=== PATIENT | female | born 1970 | race Caucasian/White ===

== ENCOUNTER 2018-10-25 01:16 | Inpatient (IN) | payer OTHER ==
[2018-10-25] MEDS ORDERED: NS 1,000 ML IV ONE (01:30)
--- NOTE | 2018-10-25 01:30 | EDPHY ---
Addendum entered and electronically signed by Saqib Bingham MD 10/25/18 15:10: Patient re-evaluated at 3:10 p.m.. She still really sleepy after 13 hr evaluation. Discussed with Dr. Gomez at this time, who will admit for hospital observation and inpatient psychiatric evaluation. Clinical impression: Overdose, acute encephalopathy The condition on admission: Fair Disposition: Inpatient on M1 hold Original Note: H & P Stated Complaint: OD Source: Patient, Family Exam Limitations: Intoxication - Personal History Tetanus Vaccine Date: last 10 years - Medical/Surgical History Hx Asthma: No Hx Chronic Respiratory Disease: No Hx Diabetes: No Hx Cardiac Disease: No Hx Renal Disease: No Hx Cirrhosis: No Hx Alcoholism: Yes Hx HIV/AIDS: No Hx Splenectomy or Spleen Trauma: No Other PMH: in ICU in [place] with aspiration pneumonia due to alcohol abuse , DEPRESSION, PTSD,ANIETY, MOOD DISORDER, R FOOT FX W/ HARDWARE. SUICIDE ATTEMPTS - Social History Smoking Status: Never smoked Time Seen by Provider: 10/25/18 01:19 HPI/ROS: HPI The patient presents with overdose of her own medications tonight in between 9: 00 p.m. And 11:30 p.m.. These include Topamax (2500mg), Ambien (30mg), Doxepin (750mg). She has a history of bipolar disorder and received ECT therapy. She has history of multiple drug overdoses including a Topamax overdose which required several day ICU stay with intubation. Her keeps her medication in a safe, however did not put Ambien and Topamax in the safe because prescriptions were just filled today. She denies any complaints currently. REVIEW OF SYSTEMS 10 systems were reviewed and negative with the exception of the elements mentioned in the history of present illness. PMHx: Bipolar disorder, history of SI Soc Hx: Here with her PHYSICAL General Appearance: Sedate, response to loud voice Eyes: Pupils equal and round no pallor or injection ENT, Mouth: Mucous membranes moist Respiratory: There are no retractions, lungs are clear to auscultation Cardiovascular: Regular rate and rhythm Gastrointestinal: Abdomen is soft and non-tender, no masses, bowel sounds normal Neurological: Sedate, oriented to self and place, can state that it is 2019, moves all extremities Skin: Warm and dry, no rashes Musculoskeletal: Neck is supple non tender Extremities: symmetrical, full range of motion Psychiatric: There is no agitation (Kassidy Jean) Constitutional: Initial Vital Signs Temperature (C) 36.3 C 10/25/18 01:22 Heart Rate 104 H 10/25/18 01:22 Respiratory Rate 14 10/25/18 01:22 Blood Pressure 116/85 H 10/25/18 01:22 O2 Sat (%) 108 H 10/25/18 01:22 O2 Delivery Mode Room Air Allergies/Adverse Reactions: lamotrigine [From Lamictal] Allergy (Verified 10/25/18 01:24) Sulfa (Sulfonamide Antibiotics) Allergy (Verified 10/25/18 01:24) trazodone Allergy (Verified 10/25/18 01:24) Home Medications: Medication Instructions Recorded Ambien Cr 10 mg PO HS PRN 03/13/18 Disulfiram 500 mg PO DAILY 03/13/18 Doxepin HCl 30 mg PO HS 03/13/18 Klonopin 1 mg PO TID 03/13/18 Levothyroxine 75 mcg PO DAILY 03/13/18 [place] Carbonate Tab 300 mg (*) 600 mg PO BID 03/13/18 Pristiq 100 mg PO DAILY 03/13/18 Propranolol HCl 20 mg PO DAILY 03/13/18 Topamax 100MG (*) 100 mg PO HS 03/13/18 Cholecalciferol Vit D3 [Vitamin D3 2,000 units PO DAILY 03/18/18 2000 units tab (OTC)] Medical Decision Making - Diagnostics EKG Interpretation: EKG: Complete interpretation has been separately recorded in the [facility] archive. Summary impression: Normal sinus rhythm (Kassidy Jean) Differential Diagnosis: 48-year-old female with bipolar disorder presents brought in by her after drug overdose of her own medications including Ambien, topiramate, doxepin between 9:00 p.m. And 11:30 p.m. Tonight. This was done in an effort to hurt herself. She has history of drug overdose many times before. Here, she is quite sedate though able to maintain her airway. I have placed the patient on an M1 hold. I have given her IV fluids. I have checked basic labs including Tylenol and aspirin levels. We consulted with poison Control, case [id number]. They recommend supportive care with 6-8 hours of observation. 6:30 a.m.- Patient has been stable, sedate though with normal vital signs throughout my shift. Labs are unremarkable though we are still awaiting urine. The case will be signed out to Dr. Bingham at change of shift. The patient can be medically clear 6 hr into her ED stay and can be evaluated by mental health. I suspect she will need placement. (Kassidy Jean) Other Provider: Care assumed at 6:45 a.m. With plan for mental health evaluation. Patient with history of bipolar disorder who overdosed on medications. She is on a mental health hold. 1500: Signed out to Dr. Henao with mental health evaluation pending. ( Saqib Bingham) I took over care of this patient at 3:00 p.m.. The patient is on an M1 hold for suicidal ideation and overdose on her psychiatric medications. She is medically cleared at this time. She is awaiting behavioral health evaluation. 3:15 p.m., the patient remains sleepy secondary to her intoxication on psychiatric medications. Plan at this time will be to admit her to the hospitalist service for further observation and then behavioral health evaluation when appropriate. Patient was admitted to the hospitalist service by Dr. Saqib Bingham. Admitting hospitalist Dr. Jaclyn Gomez. (David Henao) - Data Points Laboratory Results: Laboratory Results 10/25/18 01:30 10/25/18 01:30 10/25/18 13:50 Urine Opiates Screen NEGATIVE (NEGATIVE) Urine Barbiturates NEGATIVE (NEGATIVE) Ur Phencyclidine Scrn NEGATIVE (NEGATIVE) Ur Amphetamine Screen NEGATIVE (NEGATIVE) U Benzodiazepines Scrn NEGATIVE (NEGATIVE) Urine Cocaine Screen NEGATIVE (NEGATIVE) U Marijuana (THC) Screen NEGATIVE (NEGATIVE) Medications Given: Discontinued Medications Sodium Chloride (Ns) 1,000 mls @ 0 mls/hr IV EDNOW ONE; Wide Open PRN Reason: Protocol Stop: 10/25/18 01:31 Last Admin: 10/25/18 01:47 Dose: 1,000 mls Departure - Departure Disposition: [facility] Clinical Impression: Attempted suicide Overdose Qualifiers: Encounter type: initial encounter Injury intent: intentional self-harm Qualified Code(s): T50.902A - Poisoning by unspecified drugs, medicaments and biological substances, intentional self-harm, initial encounter Bipolar disorder Qualifiers: Active/Remission status: currently active Current bipolar episode type: mixed Current episode severity: unspecified Qualified Code(s): F31.60 - Bipolar disorder, current episode mixed, unspecified Condition: Fair Referrals: Patient,NotPresent [Unknown] - As per Instructions
[2018-10-25 01:43] LABS: PLATELET COUNT 167 10^3/uL (150-400)
[2018-10-25] MEDS ORDERED: ONDANSETRON DISINTEGRATING 4 MG TAB PO PRN (15:21)
[2018-10-25] MEDS ORDERED: ONDANSETRON 4 MG/2 ML VIAL IVP PRN (15:21)
[2018-10-25] MEDS ORDERED: ACETAMINOPHEN 325 MG TAB PO PRN (15:21)
[2018-10-25] MEDS ORDERED: D5W NS 1,000 ML IV SCH (15:30)
--- NOTE | 2018-10-25 15:53 | ASMTLCPROG ---
Notes Note: Notes: Pt has been moved from the ED to a medical floor. TLC clinician met with her for collateral. Mental health evaluation will need to wait for medical clearance. Date Signed: 10/25/2018 03:53 PM Electronically Signed By:Zaira Canales
--- NOTE | 2018-10-25 16:24 | GHP ---
[f rep st] HISTORY AND PHYSICAL DATE OF ADMISSION: 10/25/2018 CHIEF COMPLAINT: Intentional medication overdose. HISTORY OF PRESENT ILLNESS: A 48-year-old female with major depressive disorder, PTSD, undergoing EC T by Dr. Perez, last 10/14, brought in by her after a drug dose. She ingested medications last night between 9 and 11:30 p.m. The medications overdosed were Topamax (2500 mg), Ambien (30 mg) , and doxepin (750 mg). Her locks up her other medications. He did not with these because t hey were new prescriptions. She has had multiple suicide attempts. Over Super Bowl Friday, she had superficial left wrist cuts. She had been in the ED, very ataxic and somnolent still, thus being brought in for observation. REVIEW OF SYSTEMS: I completed a 10-point review of systems, negative except as noted in HPI. PAST MEDICAL HISTORY: Major depression disorder with several suicide attempts. Currently receiving ECT therapy, last 10/14/2018. Alcohol abuse, PTSD, seizure disorder after a drug ingestion, hypothyr oidism. PAST SURGICAL HISTORY: Foot surgery. SOCIAL HISTORY: She is . No kids. FAMILY HISTORY: Could not obtain as is somnolent. ALLERGIES: 1. Lamictal. 2. Sulfa. 3. Trazodone. HOME MEDICATIONS: 1. Ambien 10 mg at bedtime p.r.n. 2. Disulfiram 500 mg daily. 3. Doxepin 30 mg p.o. at bedtime. 4. Klonopin 1 mg t.i.d. 5. Levothyroxine 75 mcg daily. 6. [place] 600 mg b.i.d. 7. Pristiq 100 mg daily. 8. Propranolol 20 mg daily. 9. Topamax 100 mg at bedtime. 10. Vitamin D 2000 units daily. PHYSICAL EXAMINATION: VITAL SIGNS: Temperature 36.9, blood pressure is 113/69, heart rate 100, resp irations 18, 94% on room air. GENERAL: She is somnolent, opens eyes to voice, but falls asleep very quickly. HEENT: Pupils are small but reactive. Moist mucous membranes. CV: Tachy, regular rate a nd rhythm. LUNGS: Clear anteriorly. ABDOMEN: No grimace with palpation. : No Flynn. MUSCULOS KELETAL: Squeezes hands. NEURO: 2 through 12 intact. PSYCH: She is alert to the hospital, but not date or year. LABS: U-tox negative. Aspirin, salicylates, alcohol negative. WBC 9, hemoglobin 13, hematocrit 41, platelets 167. Sodium 136, potassium 4.6, chloride 113, carbon dioxide 17, BUN 12, creatinine 0.9, glucose 114. LFTs within normal. EKG is pending. ASSESSMENT AND PLAN: 1. Suicide intent: Medication overdose including Topamax, Ambien, doxepin. She still remains somno lent. We will monitor in the ICU overnight for arrhythmia. She is on an M1 hold and needs to be lainey luated by TLC in the morning when clears. 2. Acute metabolic encephalopathy: Secondary to medication overdose. 3. Metabolic acidosis: Secondary to Topamax. We will hydrate and repeat in the morning. 4. Major depression disorder: Again on M1 hold, is undergoing ECT. We will contact TLC in the morn ing. 5. Alcohol use: Blood alcohol level was negative. 6. Seizure disorder: Medications on hold. 7. Hypothyroidism: Hold medications until can swallow. 8. Diet: Nothing per mouth. Intravenous fluids. 9. Deep venous thrombosis prophylaxis: Lovenox. DISPOSITION: Observation admission in the ICU for telemetry, IV fluids, and psychiatric evaluation. /[id number]/MODL
--- NOTE | 2018-10-25 18:07 | PDMN ---
Medical Necessity Medical necessity: [facility] [place] [place] ingestion or OD- pt with intentional OD M1 hold for danger to self- pt with acute metabolic encephalopathy,metabolic acidosis,- 2/2 to med OD, TLC eval in am when pt clears-
[2018-10-26] MEDS ORDERED: ENOXAPARIN 40 MG/0.4 ML SYR SC SCH (09:00)
[2018-10-26 11:19] VITALS: BP 112/68
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
--- NOTE | 2018-10-26 13:09 | ASMTTCLDSP ---
TLC Discharge Disposition Disposition: Answers: Admit Disposition Notes: Notes: Admit 3N. Discharge Concerns/Recommendations: Notes: In consultation with [facility] ICU physician and on-call psychiatrist, Elder Perez MD, both concurred that pt appears to meet 27-65 criteria requiring psychiatric hospitalization as pt appears to be at risk of harm to self due to a mental illness condition. Pt was read the Patient Rights and Responsibilities Statement on 10/26/2018 at 1245 hrs, original placed on chart, and was given photocopy of Rights. Pt signed the Patient Rights. Pt was given the 3N prohibited belongings list while in the ICU. Was patient given the Answers: Yes Inpatient Behavioral Health Prohibited Belongings List while in the ED? For inpatient Elder Perez MD admission, the following psychiatrist agreed to accept patient for admission to Behavioral Health ([facility]): Type of Hold: Answers: M1/72-hour Hold Hold initiated by: Answers: ED Physician Date Signed: 10/26/2018 01:08 PM Electronically Signed By:Unruly Norwood
--- NOTE | 2018-10-26 14:14 | ASMTDCNOTE ---
Case Management Discharge Discharge Order Complete? Answers: Yes Patient to Obtain Answers: Other Notes: [facility] Medications Transportation Arranged Answers: [facility] Stretcher EMTALA Complete Answers: Yes Case Management Transport Answers: Yes Form Complete Faxed Final Orders Answers: Yes Agency/Facility Transfer Answers: Yes Report Printed & Faxed to Receiving Agency Discharge Comments Notes: Pt transfered to inpatient [facility]. Transportation was scheduled through [facility]. RN called report, pt agreeable with transfer. Date Signed: 10/26/2018 02:12 PM Electronically Signed By:CAN Coleman
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
--- NOTE | 2018-10-26 15:42 | PDDCSUM ---
Discharge Summary Discharge Summary: Date of Admission: 10/25/2018 Date of Discharge: 10/26/2018 Consults: Critical Care Medicine Followup: IP Behavioral Health/Psychiatry Hospital Course Problem List: 1. Intentional Overdose: - Medication overdose with Topamax, Ambien, and Doxepin - Patient was reported to be somnolent upon admission, AAOx3 this moroning - Admitted to ICU for monitoring overnight - Was on M1 Hold, medically cleared and plan to transfer to psych 2. Acute Metabolic Encephalopathy - 2/2 to medication overdose, resolved 3. Metabolic Acidosis - 2/2 to overdose - S/p IVF - Repeat BMP shows Bicarb 14 upon discharge, repeat labs as outpatient to ensure improving 4. Alcohol Abuse - ETOH level <10 on admission, no s/s of withdrawal 5. Seizure D/o - Continue home medications 6. Hypothyroidism - Continue home medications Time spent on discharge was >35 minutes with >50% of time spent on patient education and counseling.
== END 2018-10-26 15:09 | DRG 917 ==
LOC: UNDOADMIN 15:12 → F2N 16:58 → UNDODISIN 10-26 13:45 → F2N 10-26 14:15 → EEVIPCON 10-26 14:15 → UNDOADMIN 10-26 14:15 → BBEH 10-26 14:15 → UNDOADMIN 10-26 14:16 → EEVIPCON 10-26 14:16 → F2N 10-26 14:16 → BBEH 10-26 14:16 → UNDODISIN 10-26 15:09
PROVIDERS: ADMIT Internal Medicine; ATTEND Internal Medicine
DX: T42.6X2A Poisoning by other antiepileptic and sedative-hypnotic drugs, intentional self-harm, initial encounter (principal); T43.012A Poisoning by tricyclic antidepressants, intentional self-harm, initial encounter; F31.9 Bipolar disorder, unspecified; F43.10 Post-traumatic stress disorder, unspecified; G92 Toxic encephalopathy; E87.2 Acidosis; E03.9 Hypothyroidism, unspecified; G40.909 Epilepsy, unspecified, not intractable, without status epilepticus
CPT/HCPCS: 80305; G0480; J1650

== ENCOUNTER 2018-10-26 14:15 | Inpatient (IN) | payer OTHER ==
[2018-10-26] MEDS ORDERED: MAGNESIUM HYDROXIDE 30 ML UDCUP PO PRN (18:36)
[2018-10-26] MEDS ORDERED: MAG HYDROX/AL HYDROX/SIMETH 30 ML UDCUP PO PRN (18:36)
[2018-10-26] MEDS ORDERED: clonazePAM 1 MG TAB PO ONE (20:45)
--- NOTE | 2018-10-27 07:18 | ASMTBHMTP ---
Master Treatment Plan Master Treatment Plan Answers: Depressed Mood with for: Suicidal Ideation Date: 10/26/2018 Diagnosis on Admission: Bipolar I Disorder, current or most recent episode depressed, severe 296.53 (F31.4) Expected length of stay: 3-5 days Reason for admission: Notes: Clt is a 48 yoa female ECT patient. Patient's stated presenting problems: Notes: I attempted Suicide Patient's goals for treatment: Notes: to figure out a plan to not attempt suicide again. Patient's strengths: Notes: some.... Identify supports outside of hospital: Notes: /family Discharge criteria: Notes: Suicidal Ideation will resolve and patient will have a plan to safely manage recurrent suicidal ideation. Initial disposition plan/considerations: Notes: Return home to my family in [place].* Master Treatment Plan Required Signatures Psychiatrist signature: Answers: Psychiatrist: RN on-shift signature: Answers: RN: Patient signature: Answers: Patient: Date Signed: 10/27/2018 07:17 AM Electronically Signed By:Khari Verdin
--- NOTE | 2018-10-27 09:55 | PDMN ---
Medical Necessity Medical necessity: Pt meets inpt criteria per MD order and [facility] B-004, Bipolar Disorders, Adult: Inpatient Care, 4 days. 48 y/o w/suicidal ideation admitted w/ bipolar 1 disorder, current or most recent episode depressed, severe requiring inpt psychiatric hospitalization.
[2018-10-27] MEDS: ACETAMINOPHEN 325 MG TAB PO PRN (14:54)
[2018-10-27] MEDS ORDERED: clonazePAM 1 MG TAB PO ONE (18:00)
[2018-10-27] MEDS: MELATONIN 3 MG TAB PO SCH (21:00)
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
[2018-10-28] MEDS: ACETAMINOPHEN 325 MG TAB PO PRN (01:26)
[2018-10-28] MEDS ORDERED: CITRIC ACID/SODIUM CITRATE 30 ML UDCUP PO PRN (04:00)
[2018-10-28] MEDS ORDERED: ONDANSETRON DISINTEGRATING 4 MG TAB PO PRN ×2 (04:00→12:03)
[2018-10-28] MEDS ORDERED: CITRIC ACID/SODIUM CITRATE 30 ML UDCUP ONE (06:50)
[2018-10-28] MEDS ORDERED: ONDANSETRON DISINTEGRATING 4 MG TAB ONE (06:50)
[2018-10-28] MEDS: NS 1,000 ML IV PRN (07:06)
--- NOTE | 2018-10-28 07:33 | PDHPUP ---
History & Physical Update H&P update statement: This history and physical update is based on an assessment of the patient which was completed after admission or registration (within 24 hours), but prior to the surgery/procedure. H&P update: H&P reviewed & patient examined, no change in patient's condition since H&P completed
--- NOTE | 2018-10-28 07:38 | PDANEPAE ---
ANE Past Medical History - Cardiovascular History Hx Hypertension: No Hx Arrhythmias: No Hx Chest Pain: No Hx Coronary Artery / Peripheral Vascular Disease: No Hx Palpitations: No - Pulmonary History Hx Oxygen in Use at Home: No Hx Sleep Apnea: No - Neurologic History Hx Cerebrovascular Accident: No - Endocrine History Hx Diabetes: No - Renal History Hx Renal Disorders: No - Liver History Hx Hepatic Disorders: No - Cancer History Hx Cancer: No - Chronic Pain History Chronic Pain: No - Surgical History Prior Surgeries: Right foot ORIF 2016 ANE Review of Systems Review of Systems: ANE Patient History - Allergies Allergies/Adverse Reactions: trazodone Allergy (Intermediate, Verified 10/26/18 09:00) lamotrigine [From Lamictal] Allergy (Mild, Verified 10/26/18 09:00) Sulfa (Sulfonamide Antibiotics) Allergy (Verified 10/26/18 09:00) Rash - Home Medications Home medications: home medication list seen and reviewed Home Medications: Propranolol HCl 20 mg PO DAILY@03/13/18 [Last Taken Unknown] Cholecalciferol Vit D3 [Vitamin D3 2000 units tab (OTC)] 2,000 units PO DAILY@ 03/18/18 [Last Taken Unknown] Desvenlafaxine [Desvenlafaxine ER] 150 mg PO DAILY 10/25/18 [Last Taken Unknown] Disulfiram [Disulfiram] 500 mg PO DAILY 10/25/18 [Last Taken Unknown] Doxepin HCl [SINEquan 10 MG (*)] 30 mg PO HS 10/25/18 [Last Taken Unknown] Levothyroxine Sodium 75 mcg PO DAILY06 10/25/18 [Last Taken Unknown] [place] Carbonate [[place] Carbonate Cap 300 mg (*)] 600 mg PO BID 10/25/18 [ Last Taken Unknown] Topiramate [Topiramate] 100 mg PO HS 10/25/18 [Last Taken Unknown] Triamcinolone 0.025% [Triamcinolone 0.025% cream (*)] 1 dee TP TID PRN 10/25/18 [Last Taken Unknown] Zolpidem Tartrate [Zolpidem Tartrate] 10 mg PO HS PRN 10/25/18 [Last Taken Unknown] clonazePAM [Clonazepam] 1 mg PO TID@12,18,10/25/18 [Last Taken Unknown] Zolpidem Tartrate [Ambien 5MG (*)] 10 mg PO HS 10/26/18 [Last Taken Unknown] - NPO status NPO Status: no food or drink >8 hours - Anes Hx Anes Hx: no prior problems - Smoking Hx Smoking Status: Never smoked - Family Anes Hx Family Hx Anesthesia Complications: NA ANE Labs/Vital Signs - Vital Signs Blood Pressure: 121/60 Heart Rate: 75 Respiratory Rate: 16 O2 Sat (%): 99 Height: 154.94 cm Weight: 72.575 kg ANE Physical Exam - Airway Neck exam: FROM Mallampati Score: Class 1 Mouth exam: normal dental/mouth exam - Pulmonary Pulmonary: no respiratory distress, no rales or rhonchi, clear to auscultation - Cardiovascular Cardiovascular: regular rate and rhythym, no murmur, rub, or gallop - ASA Status ASA Status: II ANE Anesthesia Plan Anesthesia Plan: GA with mask
--- NOTE | 2018-10-28 07:52 | PDECTPN ---
ECT Progress Note Patient Problems: Problems Problem Status Onset Code Attempted suicide Acute T14.91XA Bipolar disorder Acute F31.9 Major depressive disorder, recurrent severe without psychotic features Acute F33.2 Overdose Acute T50.901A Date: 10/28/18 ECT provider: Flaco Perez Anesthesia: Stew Leigh Stimulus dose (%): 100 Pulse width: 0.3 ECT EMG (sec): 28 ECT EEG (sec): 54 ECT treatment type: unilateral QIDS-SR Total Score: 23 QIDS-SR Question #12 Score: 0 MMSE Total Score (Max = 21): 18 Next ECT date: 10/30/18 Next ECT time: 07:00 O/P psychiatrist follow up: direct communication Home medications: Medication Instructions Recorded Propranolol HCl 20 mg PO DAILY@03/13/18 Cholecalciferol Vit D3 [Vitamin D3 2,000 units PO DAILY@03/18/18 2000 units tab (OTC)] Desvenlafaxine [Desvenlafaxine ER] 150 mg PO DAILY 10/25/18 Disulfiram [Disulfiram] 500 mg PO DAILY 10/25/18 Doxepin HCl [SINEquan 10 MG (*)] 30 mg PO HS 10/25/18 Levothyroxine Sodium 75 mcg PO DAILY06 10/25/18 [place] Carbonate [[place] 600 mg PO BID 10/25/18 Carbonate Cap 300 mg (*)] Topiramate [Topiramate] 100 mg PO HS 10/25/18 Triamcinolone 0.025% 1 dee TP TID PRN 10/25/18 [Triamcinolone 0.025% cream (*)] Zolpidem Tartrate [Zolpidem 10 mg PO HS PRN 10/25/18 Tartrate] clonazePAM [Clonazepam] 1 mg PO TID@12,18,10/25/18 Zolpidem Tartrate [Ambien 5MG (*)] 10 mg PO HS 10/26/18 Medication review: completed Current treatment plan: acute phase Treatment plan frequency: 3 times per week ECT narrative: Pt seen for acute course treatment. She is now inpatient after intentional OD of multiple prescription meds. She states she has been "gradually declining for months." Denies specific precipitant, though states she was triggered when her put her new pill bottles on the table instead of immediately locking them up. She states, "I just had the sudden urge to and took a whole bottle of doxepin, topiramate and zolpidem." Discussed the opportunity to make some med changes inc: working to be off of benzo's and zolpidem. Calm, coop. Affect is restricted, stable, approp. Mood is "not too good." TP is linear, goal-directed. TC reveals no psychosis. Denies current SI.
--- NOTE | 2018-10-28 08:19 | POSTANESTH ---
Post Anesthetic Evaluation Cardiovascular Status: Other, See Comment (tachycardic 120s; will observe for now) Respiratory Status: Normal, Stable, Similar to Pre-op Cond. Level of Consciousness/Mental Status: Unconscious Complications Possibly Related to Anesthesia: None Noted
[2018-10-28] MEDS ORDERED: HYDROCODONE/APAP 5/325 TAB ONE (08:39)
[2018-10-28] MEDS: HYDROCODONE/APAP 5/325 TAB PO PRN ×2 (08:50→12:25)
[2018-10-28] MEDS ORDERED: DESVENLAFAXINE 100 MG PO SCH (09:00)
[2018-10-28] MEDS ORDERED: TRIAMCINOLONE 0.025% 15 GM CRTUBE TP PRN (16:43)
[2018-10-28] MEDS: PROPRANOLOL HCL 20 MG TAB PO SCH (19:56)
[2018-10-28] MEDS: DOXEPIN HCL 10 MG CAP PO SCH (19:57)
[2018-10-28] MEDS: LITHIUM CARBONATE 300 MG CAP PO SCH (19:57)
[2018-10-28] MEDS: TOPIRAMATE 100 MG TAB PO SCH (19:57)
[2018-10-28] MEDS: ZOLPIDEM TARTRATE 5 MG TAB PO PRN (20:02)
[2018-10-28] MEDS: MELATONIN 3 MG TAB PO SCH (20:03)
[2018-10-29] MEDS: MELATONIN 3 MG TAB PO SCH (00:27)
[2018-10-29] MEDS: LEVOTHYROXINE 75 MCG TAB PO SCH (05:55)
--- NOTE | 2018-10-29 07:59 | PDANEPAE ---
ANE History of Present Illness here for port for vascular access ANE Past Medical History - Cardiovascular History Hx Hypertension: No Hx Arrhythmias: No Hx Chest Pain: No Hx Coronary Artery / Peripheral Vascular Disease: No Hx Palpitations: No - Pulmonary History Hx Oxygen in Use at Home: No Hx Sleep Apnea: No - Neurologic History Hx Cerebrovascular Accident: No - Endocrine History Hx Diabetes: No - Renal History Hx Renal Disorders: No - Liver History Hx Hepatic Disorders: No - Neurological & Psychiatric Hx Hx Neurological and Psychiatric Disorders: Yes Neurological / Psychiatric History Comment: Confusion on exact diagnoses and dated back to psych care in [place] she has been labeled with BiPolar, MDD, PTSD and generalized mood disorder. Her depressive disorderhas been predominant and she has had several suicide attempts with pills and medication overdoses. She received ECT currently and is not suicidal today - Cancer History Hx Cancer: No - Chronic Pain History Chronic Pain: No - Surgical History Prior Surgeries: Right foot ORIF 2016 ANE Review of Systems Review of Systems: ANE Patient History - Allergies Allergies/Adverse Reactions: trazodone Allergy (Intermediate, Verified 10/26/18 09:00) lamotrigine [From Lamictal] Allergy (Mild, Verified 10/26/18 09:00) Sulfa (Sulfonamide Antibiotics) Allergy (Verified 10/26/18 09:00) Rash - Home Medications Home Medications: Propranolol HCl [Inderal 20mg (*)] 20 mg PO HS 03/13/18 [Last Taken Unknown] Cholecalciferol Vit D3 [Vitamin D3 2000 units tab (OTC)] 2,000 units PO DAILY@ 12 03/18/18 [Last Taken Unknown] Desvenlafaxine [Desvenlafaxine ER] 100 mg PO DAILY 10/25/18 [Last Taken Unknown] Disulfiram [Disulfiram] 500 mg PO DAILY 10/25/18 [Last Taken Unknown] Doxepin HCl [SINEquan 10 MG (*)] 30 mg PO HS 10/25/18 [Last Taken Unknown] Levothyroxine Sodium 75 mcg PO DAILY06 10/25/18 [Last Taken Unknown] [place] Carbonate [[place] Carbonate Cap 300 mg (*)] 600 mg PO BID 10/25/18 [ Last Taken Unknown] Topiramate [Topiramate] 100 mg PO HS 10/25/18 [Last Taken Unknown] Triamcinolone 0.025% [Triamcinolone 0.025% cream (*)] 1 dee TP TID PRN 10/25/18 [Last Taken Unknown] Zolpidem Tartrate [Zolpidem Tartrate] 10 mg PO HS PRN 10/25/18 [Last Taken Unknown] clonazePAM [Clonazepam] 1 mg PO TID@12,18,21 10/25/18 [Last Taken Unknown] Desvenlafaxine [Desvenlafaxine ER] 50 mg PO DAILY 10/28/18 [Last Taken Unknown] - Smoking Hx Smoking Status: Never smoked - Family Anes Hx Family Hx Anesthesia Complications: NA ANE Labs/Vital Signs - Vital Signs Blood Pressure: 140/75 Heart Rate: 84 Respiratory Rate: 16 O2 Sat (%): 6 Height: 154.94 cm Weight: 72.575 kg ANE Physical Exam - Airway Neck exam: FROM Mallampati Score: Class 2 Mouth exam: normal dental/mouth exam - Pulmonary Pulmonary: no respiratory distress, no rales or rhonchi - Cardiovascular Cardiovascular: regular rate and rhythym, no murmur, rub, or gallop - ASA Status ASA Status: III ANE Anesthesia Plan Anesthesia Plan: GA with mask Total IV Anesthesia: Yes
[2018-10-29] MEDS ORDERED: ceFAZolin 2 GM/DEXTROSE 100 ML IV ONE ×2 (08:00)
--- NOTE | 2018-10-29 08:11 | PDGENHP ---
History & Physical Chief Complaint: Depression History of Present Illness: This is a 48y/o F with a recent history of suicide attempt by overdose. She spent several days in ICU with close monitoring and was subsequently transferred to inpatient behavioral health. She started ECT therapy yesterday and has plans to continue therapy. She is a hard IV stick. We have been asked to place a port for ongoing therapy. Risks and options have been fully discussed. Pt wishes to proceed. Pertinent Past, Social, Family History: Past medical history: depression, multiple suicide attempts, seizures. Past surgical history: Right foot surgery. Medications: please see MAR. Social history: hx of alcohol abuse, nonsmoker. , no kids. Allergies: trazadone, lamictal, sulfa Relevant Physical Exam: General: well appearing, no acute distress. HEENT: normocephalic, atraumatic, no gross hearing deficits, mmm. Cardiac: RRR. Chest : CTAB. Abdomen: soft, nontender, nondistended. Neurologic: alert and oriented. Psychiatric: depressed mood. Musculoskeletal: MAEx4 Cardiorespiratory Assessment: Cardiac: RRR. Chest: CTAB
[2018-10-29] MEDS ORDERED: MIDAZOLAM 2 MG/2 ML VIAL IVP ONE (08:13)
[2018-10-29] MEDS ORDERED: oxyCODONE IR 5 MG TAB PO PRN (10:12)
[2018-10-29] MEDS ORDERED: LIDOCAINE/PRILOCAINE 1 EACH CRTUBE TP ONE (10:28)
[2018-10-29] MEDS ORDERED: LIDOCAINE/PRILOCAINE 1 EACH CRTUBE TP PRN (10:31)
[2018-10-29] MEDS ORDERED: DEXAMETHASONE 4 MG/ML VIAL IVP PRN (10:34)
[2018-10-29] MEDS ORDERED: ONDANSETRON 4 MG/2 ML VIAL IVP PRN (10:34)
[2018-10-29] MEDS ORDERED: HYDROmorphONE/DILAUDID 2 MG/ML INJ IVP PRN (10:34)
[2018-10-29] MEDS ORDERED: MEPERIDINE 25 MG/0.5 ML AMP IVP PRN (10:34)
[2018-10-29] MEDS ORDERED: fentaNYL 100 MCG/2 ML INJ IVP PRN (10:34)
[2018-10-29] MEDS ORDERED: LR 500 ML IV PRN (10:34)
[2018-10-29] MEDS ORDERED: NALOXONE HCL 0.4 MG/ML INJ IVP PRN (10:34)
--- NOTE | 2018-10-29 10:35 | POSTANESTH ---
Post Anesthetic Evaluation Cardiovascular Status: Normal, Stable Respiratory Status: Normal, Stable Level of Consciousness/Mental Status: Can Participate in Eval, Alert and Oriented Pain Control: Adequate, Prn Tx Ordered Nausea/Vomiting Control: Adequate, Prn Tx Ordered Complications Possibly Related to Anesthesia: None Noted
[2018-10-29] MEDS: CHOLECALCIFEROL VIT D3 2,000 UNITS TAB/CAP PO SCH (13:17)
[2018-10-29] MEDS: LITHIUM CARBONATE 300 MG CAP PO SCH ×2 (13:17→17:53)
[2018-10-29] MEDS: DESVENLAFAXINE 100 MG PO SCH ×2 (13:17→15:25)
[2018-10-29] MEDS: DESVENLAFAXINE 50 MG PO SCH ×2 (13:17→15:25)
[2018-10-29] MEDS: clonazePAM 0.5 MG TAB PO SCH ×2 (15:45→17:53)
[2018-10-29] MEDS: TOPIRAMATE 100 MG TAB PO SCH (18:19)
[2018-10-29] MEDS: PROPRANOLOL HCL 20 MG TAB PO SCH (20:45)
[2018-10-29] MEDS: ZOLPIDEM TARTRATE 5 MG TAB PO PRN (20:45)
[2018-10-29] MEDS: DOXEPIN HCL 10 MG CAP PO SCH (20:45)
[2018-10-30] MEDS ORDERED: NS 1,000 ML IV PRN (05:00)
[2018-10-30] MEDS ORDERED: ONDANSETRON DISINTEGRATING 4 MG TAB PO PRN (05:00)
[2018-10-30] MEDS ORDERED: CITRIC ACID/SODIUM CITRATE 30 ML UDCUP PO PRN (05:00)
[2018-10-30] MEDS ORDERED: ONDANSETRON DISINTEGRATING 4 MG TAB ONE (06:29)
[2018-10-30] MEDS ORDERED: CITRIC ACID/SODIUM CITRATE 30 ML UDCUP ONE (06:29)
[2018-10-30] MEDS: NS 1,000 ML IV PRN (06:32)
[2018-10-30] MEDS ORDERED: MIDAZOLAM 2 MG/2 ML VIAL ONE (06:53)
[2018-10-30] MEDS ORDERED: fentaNYL 100 MCG/2 ML INJ ONE (06:53)
[2018-10-30] MEDS ORDERED: GLYCOPYRROLATE 0.2 MG/1 ML VIAL ONE (06:53)
[2018-10-30] MEDS ORDERED: KETOROLAC 30 MG/1 ML SDV ONE (06:53)
[2018-10-30] MEDS ORDERED: ETOMIDATE 20 MG/10 ML VIAL ONE (06:54)
[2018-10-30] MEDS ORDERED: PROPOFOL 200 MG/20 ML VIAL ONE (06:54)
[2018-10-30] MEDS ORDERED: SUCCINYLCHOLINE CHLORIDE 200 MG/10 ML VIAL ONE (06:54)
[2018-10-30] MEDS ORDERED: ONDANSETRON 4 MG/2 ML VIAL ONE (06:54)
--- NOTE | 2018-10-30 08:08 | SOAPPROG ---
SOAP Progress Note Assessment/Plan: Assessment: Plan: 10/30/18 08:09 Mood: Doing well. Will treat tomorrow, consider d/c after with increased supports at home to complete "burst" of acute course treatment next week as outpatient. Subjective: LATE ENTRY FOR 10/29/18. Pt seen after returning from port placement. Spirits are good. Motivated for continued acute course treatment. has taken the next week off of work and her mother an sister are coming in from [place]. She reports no SI since arriving here. Objective: Vital Signs Temp Pulse Resp BP Pulse Ox 36 C 80 16 146/82 H 95 10/30/18 06:00 10/30/18 06:00 10/30/18 06:00 10/30/18 06:00 10/30/18 06:00 10/29/18 10/30/18 10/31/18 05:59 05:59 05:59 Intake Total 1000 Balance 1000 MSE: Calm, coop. Affect is slightly restricted, appears tired after very long day in surgery. Mood is "good." TP is linear. TC reveals no psychosis. Cognition good. Denies SI. - Time Spent With Patient Time Spent With Patient: 25" ICD10 Worksheet Patient Problems: Problems Problem Status Onset Attempted suicide Acute Bipolar disorder Acute Major depressive disorder, recurrent severe without psychotic features Acute Overdose Acute
--- NOTE | 2018-10-30 08:18 | PDANEPAE ---
ANE Past Medical History - Cardiovascular History Hx Hypertension: No Hx Arrhythmias: No Hx Chest Pain: No Hx Coronary Artery / Peripheral Vascular Disease: No Hx Palpitations: No - Pulmonary History Hx Oxygen in Use at Home: No Hx Sleep Apnea: No - Neurologic History Hx Cerebrovascular Accident: No - Endocrine History Hx Diabetes: No Obesity: moderate - Renal History Hx Renal Disorders: No - Liver History Hx Hepatic Disorders: No - Neurological & Psychiatric Hx Hx Neurological and Psychiatric Disorders: Yes Neurological / Psychiatric History Comment: Confusion on exact diagnoses and dated back to psych care in [place] she has been labeled with BiPolar, MDD, PTSD and generalized mood disorder. Her depressive disorderhas been predominant and she has had several suicide attempts with pills and medication overdoses. She received ECT currently and is not suicidal today - Cancer History Hx Cancer: No - Chronic Pain History Chronic Pain: No - Surgical History Prior Surgeries: Right foot ORIF 2015. left chest port placement 10/29/18 ANE Review of Systems Review of Systems: ANE Patient History - Allergies Allergies/Adverse Reactions: trazodone Allergy (Intermediate, Verified 10/26/18 09:00) lamotrigine [From Lamictal] Allergy (Mild, Verified 10/26/18 09:00) Sulfa (Sulfonamide Antibiotics) Allergy (Verified 10/26/18 09:00) Rash - Home Medications Home Medications: Propranolol HCl [Inderal 20mg (*)] 20 mg PO HS 03/13/18 [Last Taken 10/28/18] Cholecalciferol Vit D3 [Vitamin D3 2000 units tab (OTC)] 2,000 units PO DAILY@ 12 03/18/18 [Last Taken 10/28/18] Desvenlafaxine [Desvenlafaxine ER] 100 mg PO DAILY 10/25/18 [Last Taken 10/28/18 ] Disulfiram 500 mg PO DAILY 10/25/18 [Last Taken 10/28/18] Doxepin HCl [SINEquan 10 MG (*)] 30 mg PO HS 10/25/18 [Last Taken 10/28/18] Levothyroxine Sodium 75 mcg PO DAILY06 10/25/18 [Last Taken 10/28/18] [place] Carbonate [[place] Carbonate Cap 300 mg (*)] 600 mg PO BID 10/25/18 [ Last Taken 10/28/18] Topiramate 100 mg PO HS 10/25/18 [Last Taken 10/28/18] Triamcinolone 0.025% [Triamcinolone 0.025% cream (*)] 1 dee TP TID PRN 10/25/18 [Last Taken 10/28/18] Zolpidem Tartrate 10 mg PO HS PRN 10/25/18 [Last Taken 10/28/18] clonazePAM [Clonazepam] 1 mg PO TID@12,18,21 10/25/18 [Last Taken 10/28/18] Desvenlafaxine [Desvenlafaxine ER] 50 mg PO DAILY 10/28/18 [Last Taken 10/28/18] - NPO status NPO Status: no food or drink >8 hours - Anes Hx Anes Hx: no prior problems - Smoking Hx Smoking Status: Never smoked - Family Anes Hx Family Hx Anesthesia Complications: NA ANE Labs/Vital Signs - Vital Signs Blood Pressure: 119/71 Heart Rate: 75 Respiratory Rate: 12 O2 Sat (%): 97 Height: 154.94 cm Weight: 72.575 kg ANE Physical Exam - Airway Neck exam: FROM Mallampati Score: Class 1 Mouth exam: normal dental/mouth exam - Pulmonary Pulmonary: no respiratory distress, no rales or rhonchi, clear to auscultation - Cardiovascular Cardiovascular: regular rate and rhythym, no murmur, rub, or gallop - ASA Status ASA Status: II ANE Anesthesia Plan Anesthesia Plan: GA with mask
--- NOTE | 2018-10-30 08:26 | PDECTPN ---
ECT Progress Note Patient Problems: Problems Problem Status Onset Code Attempted suicide Acute T14.91XA Bipolar disorder Acute F31.9 Major depressive disorder, recurrent severe without psychotic features Acute F33.2 Overdose Acute T50.901A Date: 10/30/18 ECT provider: Flaco Perez Anesthesia: Stew Leigh Stimulus dose (%): 100 Pulse width: 0.3 ECT EMG (sec): 12 ECT EEG (sec): 28 ECT treatment type: unilateral QIDS-SR Total Score: 8 QIDS-SR Question #12 Score: 0 MMSE Total Score (Max = 21): 19 O/P psychiatrist follow up: direct communication Home medications: Medication Instructions Recorded Propranolol HCl [Inderal 20mg (*)] 20 mg PO HS 03/13/18 Cholecalciferol Vit D3 [Vitamin D3 2,000 units PO DAILY@03/18/18 2000 units tab (OTC)] Desvenlafaxine [Desvenlafaxine ER] 100 mg PO DAILY 10/25/18 Disulfiram 500 mg PO DAILY 10/25/18 Doxepin HCl [SINEquan 10 MG (*)] 30 mg PO HS 10/25/18 Levothyroxine Sodium 75 mcg PO DAILY06 10/25/18 [place] Carbonate [[place] 600 mg PO BID 10/25/18 Carbonate Cap 300 mg (*)] Topiramate 100 mg PO HS 10/25/18 Triamcinolone 0.025% 1 dee TP TID PRN 10/25/18 [Triamcinolone 0.025% cream (*)] Zolpidem Tartrate 10 mg PO HS PRN 10/25/18 clonazePAM [Clonazepam] 1 mg PO TID@,,10/25/18 Desvenlafaxine [Desvenlafaxine ER] 50 mg PO DAILY 10/28/18 Lidocaine/Prilocaine [Emla Cream] 1 dee TP PRN PRN cream 10/29/18 oxyCODONE IR [Oxycodone Ir (*)] 5 - 10 mg PO Q4HRS PRN tab 10/29/18 Medication review: completed Current treatment plan: acute phase Treatment plan frequency: 3 times per week ECT narrative: Pt seen for acute course treatment. She had the port placed yesterday without incident. Remains upbeat and forward thinking. Looking forward to family visiting. Discussed d/c plan. States she feels safe to return home at this point. Calm, coop. Affect is restricted, stable, approp. Mood is "not too good." TP is linear, goal-directed. TC reveals no psychosis. Denies current SI. Underwent RUL ECT without complication. Doing well. Will d/c to outpatient to complete abbreviated acute course.
--- NOTE | 2018-10-30 08:42 | POSTANESTH ---
Post Anesthetic Evaluation Cardiovascular Status: Normal, Stable, Similar to Pre-Op Cond Respiratory Status: Normal, Stable, Similar to Pre-op Cond. Level of Consciousness/Mental Status: Unconscious Complications Possibly Related to Anesthesia: None Noted
[2018-10-30] MEDS: clonazePAM 0.5 MG TAB PO SCH ×2 (10:11→16:13)
[2018-10-30] MEDS: DESVENLAFAXINE 50 MG PO SCH (10:12)
[2018-10-30] MEDS: LITHIUM CARBONATE 300 MG CAP PO SCH (10:12)
[2018-10-30] MEDS: DESVENLAFAXINE 100 MG PO SCH (10:13)
[2018-10-30] MEDS: CHOLECALCIFEROL VIT D3 2,000 UNITS TAB/CAP PO SCH (11:59)
[2018-10-30] MEDS: LEVOTHYROXINE 75 MCG TAB PO SCH (11:59)
[2018-10-30 12:00] VITALS: BP 132/82
--- NOTE | 2018-10-30 12:20 | ASMTBHDC ---
Notes Note: Notes: Pt. reports feeling "good". Pt. reports no issues from ECT, adding she usually doesn't feel well after ECT. Pt. stated she slept "not great" adding she "feel like could take a nap", adding she is not sure if she feels tired from ECT. Pt. reports getting enough to eat and attending groups. Pt. stated her medications are "finally got straightened out". Pt. stated "being off medications was causing headaches". Pt. stated she is "so excited" for discharge. Pt. stated she is able to fill and take her medications as prescribed. Pt. reports being able to get to her follow up appointments. Pt. denied SI, HI, AVH and paranoia. Pt. presents as alert, calm, smiling, good eye contact, and cooperative. Staff report pt. sleeping 5 hours last night and being medication compliant. Pt. is scheduled for ECT on Friday11/03/18 @ 7:30am. Date Signed: 10/30/2018 12:20 PM Electronically Signed By:Brittani Crabtree
--- NOTE | 2018-11-02 17:17 | BDS ---
[f rep st] [facility] DISCHARGE SUMMARY REASON FOR ADMISSION: Patient is a 48-year-old female who is a previous outpatient ECT pat ient of mine. She presented requesting maintenance ECT after completing an acute course in [place], [place]. However, over 3 to 4 month, she participated on a weekly to monthly basis, though it was some what inconsistent. Several weeks prior to this admission, she stated that she was not feeling well a nd had just not hold me. I indicated to her and her in person at that time that we needed to consider an abbreviated acute course to get back on track. She then also relapsed on alcohol, and m charles some self-injurious cuts on her arm. They did not move immediately to do the acute course uriel r and scheduled it for about 3 weeks in the future. In the interim, the patient states that her mood continued to decline, and she ultimately took an overdose of all the medication she had in front of her. A full description of the events preceding admission can be found in her admission history per Dr. Yeboah, dated 10/27/2018. ADMITTING DIAGNOSES: Per Dr. Yeboah bipolar mood disorder, unspecified, possible cluster B personali ty disorder. post traumatic stress disorder by history. Alcohol use disorder, unspecified, status p ost polypharmacy overdose, metabolic acidosis, resolving, acute encephalopathy, resolved, hypothyroid ism. ADMITTING PHYSICAL EXAM: No physical exam was performed but she was transferred to our unit from the medical service. Additional laboratory lipid profile was drawn showing triglycerides up at 164, cholesterol normal at 145. A1c normal at 5.5. TSH normal at 2.23. HOSPITAL COURSE: The patient was admitted to the [facility] inpatient unit on transfer from the ICU. She was placed on a M1 hold there. She arrived on the unit. She was converted to a voluntary status. She was engaging and pleasant, though when I arrived from being out for a day on h er 1st full day of hospitalization, she stated to me that she was ready to go home. I indicated to h er that I definitely was not ready for her to leave the hospital after only 1 day on the [facility] unit and that we were going to begin the acute course that we talked about, if she was willing. She stated she was willing, but that she still wanted to leave the hospital. We agreed that she wo uld stay to do treatments on Friday and Friday and reassess on Friday depending on her status. I then had a long conversation with both her and her and outlined the treatment plan again with him. We began the acute course treatments on 10/28/2018. We continued the right unilateral pieter atments that she was undergoing previously at 100% and 0.3 milliseconds with pulse width. She tolera crystal treatment well, though she had extreme difficulty getting her IV. This has been a chronic proble m for her and the anesthesiologist discussed with her the possibility of getting a port placed. We w ere able to contact General surgery and Dr. Dashawn Doss was kind enough to schedule her the next mo rning. She had a port placed on October 29 and returned to the unit. On October, she had an ad ditional acute course treatment and tolerated this well. We were able to access the port at that jitendra e. Patient's hospitalization with us was uncomplicated. Her affect did improve. She stated that she wa s feeling no further thoughts of suicide. She felt supported by her family and her . Her hus band planned to take the next week off and her mother and siblings were going to come and visit the [place] after that. I felt she was safe to leave the hospital and she agreed to continue acute course tr eatments as an outpatient. I discussed with her the importance of her being compliant, as in the pas t it had been somewhat hit or miss and I believe that this allowed her depression to worsen without p lars intervention. She was agreeable to this. CONDITION AT DISCHARGE: Stable. Her affect was euthymic stable and appropriate and she was voicing no thoughts of suicide. DISCHARGE MEDICATIONS: Propranolol 20 mg at h.s., vitamin D3 2000 units daily, clonazepam 0.5 mg thr ee times daily, disulfiram 500 mg daily, Desvenlafaxine ER 150 mg daily, doxepin 30 mg at h.s., Topam ax 100 mg at h.s., levothyroxine 75 mg daily, lithium 600 mg twice daily, Ambien 10 mg h.s. p.r.n. DISCHARGE DIAGNOSES: Bipolar 1 disorder, most recent episode depressed, severe, without psychosis. Alcohol use disorder, severe; recent relapse, recent suicide attempt by overdose, treatment nonadhere nce. The patient's attitude at discharge was positive and happy. The patient was voluntary throughout her stay. There are no pending labs or studies at time of discharge. The patient was full code throughout her stay. The patient was given instructions about her dates, times of her followup, which were primaril y with me and Dr. Benoit, her outpatient psychiatrist. The patient was administered nicotine, alcohol use, cannabis, and metabolic screenings. She was info rmed of her elevated triglycerides. /[id number]/MODL
== END 2018-10-30 16:20 | disposition home or self-care (01) | DRG 885 ==
LOC: BBEH 14:15
PROVIDERS: ADMIT Psychiatry & Neurology Psychiatry; ATTEND Psychiatry & Neurology Psychiatry
PROC: GZB0ZZZ Electroconvulsive Therapy, Unilateral-Single Seizure (ICD-10-PCS; principal; 2018-10-28)
PROC: GZB0ZZZ Electroconvulsive Therapy, Unilateral-Single Seizure (ICD-10-PCS; 2018-10-30)
DX: F31.4 Bipolar disorder, current episode depressed, severe, without psychotic features (principal); E87.2 Acidosis; F10.10 Alcohol abuse, uncomplicated
CPT/HCPCS: J0330; J1642; J1885; J2250; J2405; J2704; J3010

== ENCOUNTER 2018-10-29 07:54 | Day surgery (SDC) | payer OTHER ==
[2018-10-29] MEDS ORDERED: BUPIVACAINE 0.5% 30 ML SDV ONE (08:01)
[2018-10-29] MEDS ORDERED: LR 1,000 ML IV ONE (08:16)
[2018-10-29] MEDS ORDERED: MIDAZOLAM 2 MG/2 ML VIAL ONE (08:33)
[2018-10-29] MEDS ORDERED: PROPOFOL/EMULSION 500 MG/50 ML BOTTLE IV ONE (08:38)
[2018-10-29] MEDS ORDERED: fentaNYL 100 MCG/2 ML INJ ONE ×2 (08:38→09:45)
[2018-10-29] MEDS ORDERED: LIDOCAINE 2% 100 MG/5 ML SYR ONE (08:38)
[2018-10-29] MEDS ORDERED: ACETAMINOPHEN 325 MG TAB ONE (10:50)
[2018-10-29 12:14] VITALS: BP 125/81
[2018-10-29] MEDS ORDERED: oxyCODONE IR 5 MG TAB PO ONE (12:15)
[2018-10-29] MEDS ORDERED: ACETAMINOPHEN 325 MG TAB PO ONE (12:15)
--- NOTE | 2018-11-04 08:10 | PDANEPAE ---
ECT Pre Anesthetic Evaluation Allergies/Adverse Reactions: trazodone Allergy (Intermediate, Verified 10/26/18 09:00) lamotrigine [From Lamictal] Allergy (Mild, Verified 10/26/18 09:00) Sulfa (Sulfonamide Antibiotics) Allergy (Verified 10/26/18 09:00) Rash Patient ID confirmed: Yes H&P reviewed: Yes Pre-anesthetic history reviewed: Yes Heart: regular rate and rhythym, no murmur, rub, or gallop Lungs: no respiratory distress, no rales or rhonchi Mallampati Score: Class 1 ASA Status: II Home Medications: Medication Instructions Recorded Propranolol HCl [Inderal 20mg (*)] 20 mg PO HS 03/13/18 Cholecalciferol Vit D3 [Vitamin D3 2,000 units PO DAILY@12 03/18/18 2000 units tab (OTC)] Disulfiram 500 mg PO DAILY 10/25/18 Levothyroxine Sodium 75 mcg PO DAILY06 10/25/18 Topiramate 100 mg PO HS 10/25/18 Triamcinolone 0.025% 1 dee TP TID PRN 10/25/18 [Triamcinolone 0.025% cream (*)] Zolpidem Tartrate 10 mg PO HS PRN 10/25/18 clonazePAM [Clonazepam] 1 mg PO TID@12,18,10/25/18 Lidocaine/Prilocaine [Emla Cream] 1 dee TP PRN PRN cream 10/29/18 oxyCODONE IR [Oxycodone Ir (*)] 5 - 10 mg PO Q4HRS PRN tab 10/29/18 Desvenlafaxine [Desvenlafaxine ER] 50 mg PO DAILY #30 tab.er.24 10/30/18 Desvenlafaxine [Desvenlafaxine ER] 100 mg PO DAILY #30 tab.er.24 10/30/18 Doxepin HCl [SINEquan 10 MG (*)] 30 mg PO HS #90 cap 10/30/18 [place] Carbonate [[place] 600 mg PO BID #60 cap 10/30/18 Carbonate Cap 300 mg (*)] clonazePAM [Klonopin (*)] 0.5 mg PO TID #90 tab 10/30/18 Medication review: completed Patient interviewed: Yes Patient examined: Yes Anesthetic plan discussed with patient: Yes Anesthetic risks discussed with patient: Yes ECT Pre-Anesthetic History - Height & Weight Height: 154.94 cm Weight: 72.575 kg BMI: 30.25 - Anesthesia History Hx Anesthesia Complications (with details): NA Family Hx Anesthesia Complications: NA - Medications In the Past 6 Months the Patient Has Taken: Thyroid Medication, Tranquilizers - Tobacco/Alcohol/Drug Use Smoking Status: Never smoked Hx Drug/Substance Abuse: No - Prior Surgeries/Hospitalizations Prior Surgeries: Right foot ORIF 2016 - Pulmonary History ECT Hx Asthma: No Hx Abnormal Chest X-Ray: No Hx Oxygen in Use at Home: No - Cardiovascular History Hx Hypertension: No Currently Uses Hypertension Medication: No Hx Arrhythmias: No Hx Palpitations: No Hx Chest Pain: No Hx Coronary Artery / Peripheral Vascular Disease: No Hx Blood Clot: No - Neurologic History Hx Cerebrovascular Accident: No Hx CT Scan Or MRI Of The Brain: Yes Hx Epilepsy, Convulsions, Seizures, Or Blackouts: Yes Hx Frequent Or Severe Headaches: No Hx Numbness: No Hx Neurologic Disorder: No Neurologic History Comment: 03/2016 MRI of the brain related to seizures-results were negative. Summer 2016 epilepsy monitoring evidenced it was likely due to medications - Dental History Current Dental Issues: None - Endocrine History Hx Diabetes: No Current Daily Insulin Injections: No Hx Thyroid Problems: Yes Endocrine History Comment: hypothyroid-takes Synthroid - Renal/Urologic History Hx Renal Disorders: No Hx Urinary Tract Problems: No - Liver History Hx Hepatic Disorders: No - Cancer History Hx Cancer: No - Hematology History Hx Unexplained Bleeding Of Any Type: No Hx Ease Of Bruising: No Hx Anemia: No - Gastrointestinal History Hx Gastroesophogeal Reflux Disease: No Hx Ulcers: No Hx Hiatal Hernia: No Hx Difficulty Swallowing: No - Musculoskeletal Hisory Hx Chronic Pain: No Hx Arthritis: No - Opthalmic History Hx Glaucoma: No Visual Assistive Devices: Glasses Hx Opthalmic Disorders: No - Other Health History Physical Disabililty: No Recent Cough, Cold, or Fever: No Significant Weight Loss In The Last 4 Months: No Possible the Patient Might be : No
--- NOTE | 2018-11-04 08:18 | POSTANESTH ---
Post Anesthetic Evaluation Cardiovascular Status: Normal, Stable, Similar to Pre-Op Cond Respiratory Status: Normal, Stable, Similar to Pre-op Cond. Level of Consciousness/Mental Status: Unconscious Pain Control: Adequate, Prn Tx Ordered Nausea/Vomiting Control: Adequate, Prn Tx Ordered Complications Possibly Related to Anesthesia: None Noted
== END 2018-10-29 14:42 ==
LOC: FSGY 07:54 → EEVIPCON 08:45 → FSGY 14:42
PROVIDERS: ATTEND Surgery
PROC: 02HV33Z Insertion of Infusion Device into Superior Vena Cava, Percutaneous Approach (ICD-10-PCS; principal; 2018-10-29 08:30)
DX: F32.9 Major depressive disorder, single episode, unspecified (principal)
CPT/HCPCS: C1788; J1642; J2001; J2250; J2704; J3010